=== PATIENT | female | born 1960 | race Caucasian/White ===

== ENCOUNTER 2017-04-09 10:10 | Day surgery (SDC) | payer MEDICAID ==
[2017-04-03 07:07] VITALS: BMI 24.7
[2017-04-09] MEDS ORDERED: Sodium Chloride 0.9% 1,000 ML IV SCH (12:00)
[2017-04-09] MEDS ORDERED: Propofol 10 mg/ml Inj (20 ML) ONE (12:02)
[2017-04-09 13:51] VITALS: PULSE 58
[2017-04-09 14:12] VITALS: BP 119/72; RESP 16; TEMP 97.8; O2SAT 100
== END 2017-04-09 14:07 | disposition home or self-care (01) ==
LOC: ENDO 10:10
PROVIDERS: ATTEND Internal Medicine Gastroenterology
DX: Z12.11 Encounter for screening for malignant neoplasm of colon (principal); K64.0 First degree hemorrhoids; E78.5 Hyperlipidemia, unspecified; E55.9 Vitamin D deficiency, unspecified; R73.03 Prediabetes; E78.00 Pure hypercholesterolemia, unspecified; G89.29 Other chronic pain; M54.9 Dorsalgia, unspecified; Z80.0 Family history of malignant neoplasm of digestive organs; Z82.49 Family history of ischemic heart disease and other diseases of the circulatory system
CPT/HCPCS: 45378; J2001; J2704; J7040 ×2

== ENCOUNTER 2019-01-06 13:57 | Outpatient (CLI) | payer MEDICAID | END 2019-01-06 13:58 | disposition home or self-care (01) | LOC: RAD 13:58 ==